=== PATIENT | female | born 1960 | race Two or more races ===

== ENCOUNTER 2023-05-18 21:58 | Emergency (ER) | payer OTHER ==
[~2023-05-18] VITALS: Ht 162.6 cm; Wt 61.0 kg
[2023-05-18 23:11] VITALS: BP 98/56; PULSE 68; RESP 18; O2SAT 97
[2023-05-19] MEDS: TETANUS-DIPTH-ACEL PERTUSSIS 0.5ML SYR Tdap IM ONE (01:04)
== END 2023-05-19 01:16 | disposition home or self-care (01) ==
LOC: ER 21:58
DX: S61.213A Laceration without foreign body of left middle finger without damage to nail, initial encounter (principal); W26.0XXA Contact with knife, initial encounter; Y93.89 Activity, other specified; Y92.090 Kitchen in other non-institutional residence as the place of occurrence of the external cause; Y99.8 Other external cause status
CPT/HCPCS: 12002; 90471; 90715